=== PATIENT | female | born 1965 | race Hispanic/Latino ===

== ENCOUNTER 2023-07-22 06:21 | Day surgery (SDC) | payer BC ==
[~2023-07-22] VITALS: Ht 157.5 cm; Wt 57.2 kg
[2023-07-22] VITALS (12 sets, daily range): BP systolic 100–109; BP diastolic 63–71; PULSE 49–69; RESP 14–19
[2023-07-22] MEDS ORDERED: PROPOFOL 10 MG/ML 20ML VIAL IV ONE (08:10)
[2023-07-22] MEDS ORDERED: FENTANYL CITRATE PF 50 MCG/1 ML 2ML VIAL ONE (08:10)
[2023-07-22] MEDS ORDERED: SUCCINYLCHOLINE CHLORIDE 20 MG/ML 10 ML VIAL ONE (08:11)
[2023-07-22] MEDS ORDERED: ONDANSETRON 4MG INJ ONE (08:13)
[2023-07-22] MEDS ORDERED: IOHEXOL-350 50ML VIAL IV ONE (08:15)
[2023-07-22] MEDS ORDERED: INDOMETHACIN 100 MG SUPP.RECT RC ONE (08:30)
== END 2023-07-22 09:38 | disposition home or self-care (01) ==
LOC: DAH 06:21 → ENDO 06:21
PROVIDERS: ATTEND Internal Medicine Gastroenterology
DX: R93.2 Abnormal findings on diagnostic imaging of liver and biliary tract (principal); K83.1 Obstruction of bile duct; Z82.49 Family history of ischemic heart disease and other diseases of the circulatory system; Z83.3 Family history of diabetes mellitus; Z90.49 Acquired absence of other specified parts of digestive tract; Z98.891 History of uterine scar from previous surgery; Z98.890 Other specified postprocedural states
CPT/HCPCS: 43262; 74330; 43264; 43275; J3010; J0330; J2704; J2405; Q9967; A4215 ×2; A4223; A4657; A7002; A4222; A4221; A4663; A4216; J7030; A4606; C1769; C1773; J3490